=== PATIENT | female | born 1970 | race Caucasian/White ===

== ENCOUNTER 2019-01-06 15:52 | Emergency (ER) | payer MEDICAID ==
[~2019-01-06] VITALS: Ht 137.2 cm; Wt 45.9 kg
[2019-01-06 16:10] VITALS: BP 117/76
[2019-01-06 17:18] LABS: APPEARANCE,URINE CLEAR (CLEAR); BILIRUBIN,URINE NEGATIVE (NEGATIVE); BLOOD, URINE NEGATIVE (NEGATIVE); COLOR,URINE YELLOW (YELLOW); LEUKOCYTE ESTERASE ,URINE NEGATIVE (NEGATIVE); NITRITE, URINE NEGATIVE (NEGATIVE); UGLUCOSE 3+ (NEGATIVE)
[2019-01-06 18:15] LABS: BASOPHILS % (AUTO) 0.3 % (0.0-2.0); EOSINOPHILS # (AUTO) 0.1 K/uL (0-0.4); EOSINOPHILS % (AUTO) 1.1 % (0.0-4.0); HEMATOCRIT 28.4 % (36-48); LYMPHOCYTES # (AUTO) 1.7 K/uL (2.5-16.5); LYMPHOCYTES % (AUTO) 37.1 % (20.5-51.1); MEAN CORPUSCULAR HEMOGLOBIN 28 pg (27-31); MEAN CORPUSCULAR HGB CONC 35 g/dL (33-37); MEAN CORPUSCULAR VOLUME 80.6 fL (80-94); MONOCYTES # (AUTO) 0.3 K/uL (0.8-1.0); MONOCYTES % (AUTO) 6.7 % (1.7-9.3); NEUTROPHILS # (AUTO) 2.6 K/uL (1.8-7.7); NEUTROPHILS % (AUTO) 54.8 % (42.2-75.2); PLATELET COUNT (AUTO) 291 K/uL (140-450); RED BLOOD CELL COUNT(AUTO) 3.52 MIL/uL (4.20-5.40); RED CELL DISTRIBUTION WIDTH 13.1 % (11.6-13.7); WHITE BLOOD COUNT (AUTO) 4.7 K/uL (4.8-10.8)
--- NOTE | 2019-01-06 18:42 | NUR ---
PT AMBULATED TO BED 11.
--- NOTE | 2019-01-06 19:00 | NUR ---
48 Y/O FEMALE PRESENTS TO ED. C/O OF ABDOMINAL PAIN 12/18. PT STATES PAIN STARTED LAST THURSDAY. PT HAS HX OF UTI. DENIES ANY PAIN VOIDING. ACTIVE BS ON ALL QUADRANTS. PAIN ON PALPATION ON LOWER QUADRANT. PT VSS. ERMD AWARE. WILL CONTINUE TO MONITOR.
[2019-01-06 19:15] LABS: ALBUMIN 3.7 g/dL (3.4-5.0); CARBON DIOXIDE 26.2 mmol/L (21-32); CREATININE 0.6 mg/dL (0.6-1.3); POTASSIUM 4.2 mmol/L (3.5-5.1); TOTAL BILIRUBIN 0.3 mg/dL (0.0-1.0)
[2019-01-06] MEDS ORDERED: NACL 0.9% 1,000 ML IV ONE (19:25)
[2019-01-06] MEDS: SODIUM CHLORIDE FLUSH 10 ML SYR IVF STA ×2 (19:50→19:54)
[2019-01-06] MEDS ORDERED: KETOROLAC 30 MG/ML VIAL IVP ONE (19:55)
--- NOTE | 2019-01-06 20:01 | NUR ---
PT TAKEN TO CT AT THIS TIME
[2019-01-06 21:55] VITALS: BP 148/90
--- NOTE | 2019-01-06 21:55 | NUR ---
Patient discharged with v/s stable. Written and verbal after care instructions given and explained. Patient alert, oriented and verbalized understanding of instructions. Ambulatory with steady gait. All questions addressed prior to discharge. ID band removed. Patient advised to follow up with PMD. Rx of MOTRIN 600MG, MIRALAX POWDER FOR SOLUTION, AND NORCO 5MG-325MG given. Patient educated on indication of medication including possible reaction and side effects. Opportunity to ask questions provided and answered.
[2019-01-10] MEDS ORDERED: METF500T PO ×2 (09:30→11:35)
[2019-01-10] MEDS ORDERED: GLUC-805 FS (09:30)
[2019-01-10] MEDS ORDERED: METF1000 PO (11:23)
[2019-01-10] MEDS ORDERED: SLIDE SUBQ (11:24)
[2019-01-10] MEDS ORDERED: HUMSLIDE SUBQ (11:35)
[2019-01-10] MEDS ORDERED: DOCU-299 PO (11:35)
[2019-01-10] MEDS ORDERED: METO5SOL24 PO (11:35)
[2019-01-10] MEDS ORDERED: SULF1TAB12 PO (11:36)
[2019-01-10] MEDS ORDERED: MIRABULK PO (11:37)
[2019-01-10] MEDS ORDERED: LACT10CA1 PO (11:37)
== END 2019-01-06 21:55 | disposition home or self-care (01) ==
LOC: MED 15:52
DX: K59.00 Constipation, unspecified (principal); E87.1 Hypo-osmolality and hyponatremia; E11.9 Type 2 diabetes mellitus without complications; Z88.0 Allergy status to penicillin; Z98.890 Other specified postprocedural states
CPT/HCPCS: 36415; 74176; 80053; 81003; 81025; 83690; 85025; 96374; 99284; J1885; J7030

== ENCOUNTER 2019-01-27 19:52 | Emergency (ER) | payer MEDICAID ==
[~2019-01-27] VITALS: Ht 162.6 cm; Wt 46.7 kg
[~2019-01-27 19:52] MED LIST: DOCU-299 PO; HUMSLIDE SUBQ; LACT10CA1 PO; METF500T PO; METO5SOL24 PO; MIRABULK PO; SLIDE SUBQ; SULF1TAB12 PO
[2019-01-27 20:12] VITALS: BP 109/72
--- NOTE | 2019-01-27 20:14 | NUR ---
PT TO GIVE URINE SAMPLE, THEN WAIT IN ER LOBBY. JAYLON. [id number]
--- NOTE | 2019-01-27 21:30 | NUR ---
PT AMBULATED TO BED 01.
--- NOTE | 2019-01-27 21:44 | NUR ---
48 Y/O F PRESENTS C/O ABDOMEN PAIN X2 DAYS. AAOX4. MILD TENDERNESS TO RLQ. +DIARRHEA. PT DENIES N/V.BOWEL SOUNDS PRESENT X4 QUADRANTS. PT DENIES FLANK PAIN. 8/10 PAIN, ACHING. WILL CONTINUE TO MONITOR.
[2019-01-27] MEDS ORDERED: KETOROLAC 30 MG/ML VIAL IM ONE (22:15)
--- NOTE | 2019-01-27 23:27 | NUR ---
PT HAS DECREASED PAIN 3/10. ALL VSS. WILL CONTINUE TO MONITOR.
[2019-01-28] MEDS ORDERED: MORPHINE SULFATE 4 MG/ML SYR IM ONE (00:20)
--- NOTE | 2019-01-28 00:20 | NUR ---
PT SEEN TEARFUL. INCREASED PAIN. ERMD MADE AWARE.
--- NOTE | 2019-01-28 01:02 | NUR ---
PT AMBULATED TO THE RESTROOM. STEADY GAIT OBSERVED
--- NOTE | 2019-01-28 01:27 | NUR ---
ULTRASOUND AT BEDSIDE.
--- NOTE | 2019-01-28 02:45 | NUR ---
PT ASLEEP. VISIBLE CHEST RISE AND FALL NOTED. WILL CONTINUE TO MONITOR.
[2019-01-28 03:49] VITALS: BP 132/79
--- NOTE | 2019-01-28 03:50 | NUR ---
Patient discharged with v/s stable. Written and verbal after care instructions given and explained. Patient alert, oriented and verbalized understanding of instructions. Ambulatory with steady gait. All questions addressed prior to discharge. ID band removed. Patient advised to follow up with PMD. Rx of keflex and naprosyn given. Patient educated on indication of medication including possible reaction and side effects. Opportunity to ask questions provided and answered.
== END 2019-01-28 03:50 | disposition home or self-care (01) ==
LOC: MED 19:52
DX: N39.0 Urinary tract infection, site not specified (principal); R19.7 Diarrhea, unspecified; I10 Essential (primary) hypertension; E11.9 Type 2 diabetes mellitus without complications; Z88.0 Allergy status to penicillin; Z79.84 Long term (current) use of oral hypoglycemic drugs; Z79.4 Long term (current) use of insulin; Z79.899 Other long term (current) drug therapy
CPT/HCPCS: 76856; 81002; 81025; 93976; 96372; 99284; J1885; J2270; Q0092